=== PATIENT | female | born 1950 | race Two or more races ===

== ENCOUNTER 2017-06-22 09:25 | Emergency (ER) | payer BC ==
[~2017-06-22] VITALS: Ht 165.1 cm; Wt 72.6 kg
[2017-06-22 09:25] VITALS: BP 137/78
[2017-06-22] MEDS ORDERED: ACETAMINOPHEN ES 500 MG TABLET PO ONE (10:00)
[2017-06-22] MEDS ORDERED: TRAMADOL HCL 50 MG TABLET PO ONE (10:00)
[2017-06-22] MEDS ORDERED: TRAMADOL HCL 50 MG TABLET ONE (10:08)
[2017-06-22] MEDS ORDERED: ACETAMINOPHEN ES 500 MG TABLET ONE (10:08)
== END 2017-06-22 10:37 | disposition home or self-care (01) ==
LOC: ER 09:27
DX: M79.675 Pain in left toe(s) (principal); Z96.643 Presence of artificial hip joint, bilateral
CPT/HCPCS: 73630; 99284; A4606; Z7610

== ENCOUNTER 2017-07-06 11:00 | Outpatient (CLI) | payer BC, MEDICARE | END 2017-07-06 23:59 | disposition home or self-care (01) | LOC: WOU 11:00 | PROVIDERS: ATTEND Podiatrist Foot & Ankle Surgery | DX: M20.12 Hallux valgus (acquired), left foot (principal); M20.11 Hallux valgus (acquired), right foot; M65.872 Other synovitis and tenosynovitis, left ankle and foot; M65.871 Other synovitis and tenosynovitis, right ankle and foot; R60.0 Localized edema | CPT/HCPCS: G0463 ==

== ENCOUNTER 2017-07-07 14:07 | Outpatient (CLI) | payer BC, MEDICARE ==
[2017-07-07 14:53] LABS: APPEARANCE,URINE CLEAR (CLEAR); BILIRUBIN,URINE NEGATIVE (NEGATIVE); BLOOD, URINE NEGATIVE Ery/uL (NEGATIVE); COLOR,URINE YELLOW (YELLOW); KETONES,URINE NEGATIVE (NEGATIVE); LEUKOCYTE ESTERASE ,URINE NEGATIVE (NEGATIVE); NITRITE, URINE NEGATIVE (NEGATIVE); PH,URINE 6.5 (5.0-8.0); PROTEIN,URINE NEGATIVE (NEGATIVE); UGLUCOSE NEGATIVE (NEGATIVE); UROBILINOGEN,URINE 0.2 EU/dL (0.2)
[2017-07-07 15:04] LABS: BASOPHILS % (AUTO) 0.5 % (0.0-2.0); EOSINOPHILS # (AUTO) 0.2 /CMM (0.0-0.7); EOSINOPHILS % (AUTO) 2.5 % (0.0-6.0); HEMATOCRIT 40 % (33-45); HEMOGLOBIN 13.2 g/dL (11.5-14.8); LYMPHOCYTES # (AUTO) 2.6 /CMM (0.8-4.8); LYMPHOCYTES % (AUTO) 30.1 % (20.0-44.0); MEAN CORPUSCULAR HEMOGLOBIN 32 PG (26.0-33.0); MEAN CORPUSCULAR HGB CONC 33 g/dl (31.0-36.0); MEAN CORPUSCULAR VOLUME 95 fL (82-100); MONOCYTES # (AUTO) 0.7 /CMM (0.1-1.30); MONOCYTES % (AUTO) 7.9 % (2.0-12.0); NEUTROPHILS # (AUTO) 5.1 /CMM (1.8-8.9); PLATELET COUNT (AUTO) 152 /CMM (150-450); RDW COEFFICIENT OF VARIATION 13.6 (11.5-15.0); RED BLOOD CELL COUNT(AUTO) 4.18 MIL/uL (4.0-5.2); WHITE BLOOD COUNT (AUTO) 8.7 K/uL (4.3-11.0)
[2017-07-07 15:07] LABS: ALANINE AMINOTRANSFERASE 20 U/L (12-78); ALKALINE PHOSPHATASE 78 U/L (46-116); ASPARTATE AMINOTRANSFERASE 15 U/L (15-37); BILIRUBIN,TOTAL 0.4 mg/dL (0.2-1.0); CALCIUM, SERUM 9.1 mg/dL (8.5-10.1); CARBON DIOXIDE 26 mmol/L (21-32); CHLORIDE 104 mmol/L (98-107); GLUCOSE 110 mg/dL (74-106); SODIUM SERUM 139 mmol/L (136-145); TOTAL PROTEIN, SERUM 7.4 g/dL (6.4-8.2); UREA NITROGEN, BLOOD 19 mg/dL (7-18)
[2017-07-07 15:28] LABS: CHOLESTEROL 163 mg/dL (<200); HDL CHOLESTEROL 62 mg/dL (40-60); LDL 95 mg/dL (0-99); THYROID STIMULATING HORMONE 1.965 uIU/mL (0.358-3.74); TRIGLYCERIDES 80 mg/dL (30-150); URIC ACID 4.7 mg/dL (2.6-7.2)
[2017-07-07 15:54] LABS: C-REACTIVE PROTEIN < 0.2 mg/dL (0.0-0.9)
== END 2017-07-07 23:59 | disposition home or self-care (01) ==
LOC: LAB 14:07
PROVIDERS: ATTEND Legal Medicine
DX: Z00.01 Encounter for general adult medical examination with abnormal findings (principal); M21.071 Valgus deformity, not elsewhere classified, right ankle; M21.072 Valgus deformity, not elsewhere classified, left ankle; E78.5 Hyperlipidemia, unspecified; E55.9 Vitamin D deficiency, unspecified; R79.89 Other specified abnormal findings of blood chemistry
CPT/HCPCS: 36415; 73630-TC; 80053-TC; 80061-TC; 81000-TC; 82306; 84443-TC; 84550-TC; 85025-TC; 85652-TC; 86140-TC

== ENCOUNTER 2019-04-05 16:09 | Outpatient (CLI) | payer BC, MEDICARE ==
[2019-04-05 17:13] LABS: BASOPHILS # (AUTO) 0.1 /CMM (0.0-0.2); BASOPHILS % (AUTO) 0.9 % (0.0-2.0); EOSINOPHILS % (AUTO) 2.2 % (0.0-6.0); HEMATOCRIT 39 % (33-45); HEMOGLOBIN 13.2 g/dL (11.5-14.8); LYMPHOCYTES # (AUTO) 1.9 /CMM (0.8-4.8); LYMPHOCYTES % (AUTO) 27.2 % (20.0-44.0); MEAN CORPUSCULAR HGB CONC 34 g/dl (31.0-36.0); MEAN CORPUSCULAR VOLUME 96 fL (82-100); MONOCYTES # (AUTO) 0.7 /CMM (0.1-1.30); MONOCYTES % (AUTO) 10.5 % (2.0-12.0); NEUTROPHILS # (AUTO) 4.1 /CMM (1.8-8.9); NEUTROPHILS % (AUTO) 59.2 % (43.0-81.0); PLATELET COUNT (AUTO) 160 /CMM (150-450); WHITE BLOOD COUNT (AUTO) 6.9 K/uL (4.3-11.0)
[2019-04-05 17:14] LABS: APPEARANCE,URINE CLEAR (CLEAR); BILIRUBIN,URINE NEGATIVE (NEGATIVE); BLOOD, URINE NEGATIVE Ery/uL (NEGATIVE); COLOR,URINE YELLOW (YELLOW); KETONES,URINE NEGATIVE (NEGATIVE); LEUKOCYTE ESTERASE ,URINE NEGATIVE (NEGATIVE); NITRITE, URINE NEGATIVE (NEGATIVE); PH,URINE 6.5 (5.0-8.0); PROTEIN,URINE NEGATIVE (NEGATIVE); UGLUCOSE NEGATIVE (NEGATIVE); UROBILINOGEN,URINE 0.2 EU/dL (0.2)
[2019-04-05 17:23] LABS: ALBUMIN 3.7 g/dL (3.4-5.0); BILIRUBIN,TOTAL 0.2 mg/dL (0.2-1.0); CALCIUM, SERUM 8.8 mg/dL (8.5-10.1); CREATININE 0.9 mg/dL (0.6-1.3); POTASSIUM 4.3 mmol/L (3.5-5.1); TOTAL PROTEIN, SERUM 7.2 g/dL (6.4-8.2)
[2019-04-05 17:40] LABS: C-REACTIVE PROTEIN 1.1 mg/dL (0.0-0.9); THYROID STIMULATING HORMONE 1.94 uIU/mL (0.358-3.74); URIC ACID 3.7 mg/dL (2.6-7.2)
== END 2019-04-05 23:59 | disposition home or self-care (01) ==
LOC: LAB 16:09
PROVIDERS: ATTEND Legal Medicine
DX: Z00.00 Encounter for general adult medical examination without abnormal findings (principal); N73.8 Other specified female pelvic inflammatory diseases; Z96.643 Presence of artificial hip joint, bilateral
CPT/HCPCS: 36415; 73521; 80053-TC; 80061-TC; 81000-TC; 82306; 82728-TC; 83540-TC; 84439-TC; 84443-TC; 84550-TC; 85025-TC; 85652-TC; 86140-TC

== ENCOUNTER 2019-04-21 09:07 | Outpatient (CLI) | payer BC, MEDICARE | END 2019-04-21 23:59 | disposition home or self-care (01) | LOC: CT 09:07 | PROVIDERS: ATTEND Legal Medicine | DX: M48.061 Spinal stenosis, lumbar region without neurogenic claudication (principal); M47.817 Spondylosis without myelopathy or radiculopathy, lumbosacral region; M51.27 Other intervertebral disc displacement, lumbosacral region; M51.24 Other intervertebral disc displacement, thoracic region; N85.2 Hypertrophy of uterus; K57.30 Diverticulosis of large intestine without perforation or abscess without bleeding; Z96.643 Presence of artificial hip joint, bilateral | CPT/HCPCS: 72131-TC; 72192-TC ==

== ENCOUNTER 2019-10-02 09:47 | Emergency (ER) | payer BC, MEDICARE ==
[~2019-10-02] VITALS: Ht 165.1 cm; Wt 68.0 kg
[2019-10-02 09:50] VITALS: BP 151/84
== END 2019-10-02 10:57 | disposition home or self-care (01) ==
LOC: ER 10:02
DX: S83.8X1A Sprain of other specified parts of right knee, initial encounter (principal); Z96.643 Presence of artificial hip joint, bilateral; W23.0XXA Caught, crushed, jammed, or pinched between moving objects, initial encounter; Y93.89 Activity, other specified; Y92.89 Other specified places as the place of occurrence of the external cause; Y99.8 Other external cause status
CPT/HCPCS: 73564-TC

== ENCOUNTER 2019-10-10 09:09 | Outpatient (CLI) | payer BC | END 2019-10-10 23:59 | disposition home or self-care (01) | LOC: CT 09:09 | PROVIDERS: ATTEND Legal Medicine | DX: M17.11 Unilateral primary osteoarthritis, right knee (principal); M71.21 Synovial cyst of popliteal space [Baker], right knee; M25.461 Effusion, right knee | CPT/HCPCS: 73700-TC ==

== ENCOUNTER 2020-01-21 18:05 | Emergency (ER) | payer BC, MEDICARE ==
[~2020-01-21] VITALS: Ht 165.1 cm; Wt 68.0 kg
[2020-01-21 18:20] VITALS: BP 133/97
[2020-01-21] MEDS ORDERED: ACETAMINOPHEN ES 500 MG TABLET ONE (18:52)
[2020-01-21] MEDS ORDERED: ACETAMINOPHEN 160 MG/5 ML PO ONE (19:00)
== END 2020-01-21 19:49 | disposition home or self-care (01) ==
LOC: ER 18:11
DX: B34.9 Viral infection, unspecified (principal); R68.83 Chills (without fever); Z20.828 Contact with and (suspected) exposure to other viral communicable diseases; Z87.11 Personal history of peptic ulcer disease; Z96.643 Presence of artificial hip joint, bilateral
CPT/HCPCS: 71045; 99284; C9803; U0003

== ENCOUNTER → 2020-03-26 | Emergency (ER) | payer BC, MEDICARE ==
[~2020-03-26] VITALS: Ht 165.1 cm; Wt 70.3 kg
[2020-03-26 15:09] VITALS: BP 146/79
== END | disposition home or self-care (01) ==
LOC: ER 14:58
DX: R42 Dizziness and giddiness (principal); R51 Headache; Z96.643 Presence of artificial hip joint, bilateral

== ENCOUNTER 2020-04-15 09:41 | Outpatient (CLI) | payer BC, MEDICARE | END 2020-04-15 23:59 | disposition home or self-care (01) | LOC: CT 09:41 | PROVIDERS: ATTEND Legal Medicine | DX: S12.9XXA Fracture of neck, unspecified, initial encounter (principal); M50.13 Cervical disc disorder with radiculopathy, cervicothoracic region; M47.817 Spondylosis without myelopathy or radiculopathy, lumbosacral region; M51.26 Other intervertebral disc displacement, lumbar region; M47.23 Other spondylosis with radiculopathy, cervicothoracic region; M48.03 Spinal stenosis, cervicothoracic region; M25.78 Osteophyte, vertebrae; M41.86 Other forms of scoliosis, lumbar region; M43.16 Spondylolisthesis, lumbar region; M51.27 Other intervertebral disc displacement, lumbosacral region; M48.061 Spinal stenosis, lumbar region without neurogenic claudication; I67.82 Cerebral ischemia; G31.89 Other specified degenerative diseases of nervous system; X58.XXXA Exposure to other specified factors, initial encounter; Y93.89 Activity, other specified; Y92.89 Other specified places as the place of occurrence of the external cause; Y99.8 Other external cause status | CPT/HCPCS: 70450-TC; 72125-TC; 72131-TC ==

== ENCOUNTER 2020-04-18 09:10 | Outpatient (CLI) | payer BC, MEDICARE ==
[2020-04-18] MEDS ORDERED: IV NS 0.9% 250 ML IV ONE (09:35)
[2020-04-18] MEDS ORDERED: IOHEXOL-350 100 ML VIAL IV ONE (09:35)
== END 2020-04-18 23:59 | disposition home or self-care (01) ==
LOC: CT 09:10
PROVIDERS: ATTEND Legal Medicine
DX: I65.23 Occlusion and stenosis of bilateral carotid arteries (principal)
CPT/HCPCS: 70496; 70498; J7050; Q9967

== ENCOUNTER 2020-12-14 15:32 | Emergency (ER) | payer BC, MEDICARE ==
[~2020-12-14] VITALS: Ht 165.1 cm; Wt 68.0 kg
--- NOTE | 2020-12-14 15:32 | NUR ---
PT BIB SELF C/O BLOOD IN THE STOOL STARTED TODAY. PT IS AAOX4, NOT IN RESPIRATORY DISTRESS, V/S STABLE, KEPT RESTED AND COMFORTABLE. WILL CONTINUE TO MONITOR.
[2020-12-14] MEDS ORDERED: OMEP20CA15 PO (16:12)
[2020-12-14] MEDS ORDERED: PANTOPRAZOLE 40 MG TABLET.DR PO ONE ×2 (16:12→16:30)
--- NOTE | 2020-12-14 16:21 | NUR ---
Patient does not wish to proceed with medical care recommended by Dr. Abebe. Patient given information related to possible complications, up to and including , which could occur as a result of leaving the hospital at this time. Patient verbalizes understanding of risks involved due to leaving against medical advice. Patient has signed AMA form.
[2020-12-14 16:22] VITALS: BP 129/72
[2020-12-14] MEDS ORDERED: OMEPRAZOLE 20 MG CAPSULE.DR GT SCH (16:30)
[2020-12-14] MEDS ORDERED: PANTOPRAZOLE 40 MG/PACK PACK PO ONE (16:30)
== END 2020-12-14 16:23 | disposition left against medical advice (07) ==
LOC: ER 15:32
DX: K29.01 Acute gastritis with bleeding (principal); Z96.643 Presence of artificial hip joint, bilateral

== ENCOUNTER 2021-01-01 08:41 | Outpatient (CLI) | payer BC ==
[~2021-01-01 08:41] MED LIST: OMEP20CA15 PO
== END 2021-01-01 23:59 | disposition home or self-care (01) ==
LOC: US 08:41
PROVIDERS: ATTEND Legal Medicine
DX: K57.30 Diverticulosis of large intestine without perforation or abscess without bleeding (principal); I25.10 Atherosclerotic heart disease of native coronary artery without angina pectoris; R91.8 Other nonspecific abnormal finding of lung field; J98.11 Atelectasis; J98.4 Other disorders of lung; I70.0 Atherosclerosis of aorta; N85.2 Hypertrophy of uterus; N85.4 Malposition of uterus; M47.816 Spondylosis without myelopathy or radiculopathy, lumbar region; Z96.653 Presence of artificial knee joint, bilateral
CPT/HCPCS: 76856-TC

== ENCOUNTER 2021-06-18 12:22 | Emergency (ER) | payer BC ==
[~2021-06-18] VITALS: Ht 165.1 cm; Wt 65.8 kg
--- NOTE | 2021-06-18 12:45 | NUR ---
BODY ACHES, NEW LOSS SENSE OF TASTE X AM. 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 PT A/OX4. TOLERATING R/A WELL WITH NO SOB
--- NOTE | 2021-06-18 13:14 | NUR ---
COVID SWAB DONE AND SENT TO THE LAB
--- NOTE | 2021-06-18 13:16 | NUR ---
COVID SWAB COLLECTED AND SENT TO LAB
[2021-06-18 13:52] VITALS: BP 145/86
--- NOTE | 2021-06-18 13:52 | NUR ---
Patient discharged to home in stable condition. Written and verbal after care instructions given. Patient verbalizes understanding of instruction.
== END 2021-06-18 13:53 | disposition home or self-care (01) ==
LOC: ER 12:27
DX: R43.8 Other disturbances of smell and taste (principal); R52 Pain, unspecified; Z20.822 Contact with and (suspected) exposure to COVID-19; Z96.643 Presence of artificial hip joint, bilateral; R03.0 Elevated blood-pressure reading, without diagnosis of hypertension
CPT/HCPCS: 87426; 99283; C9803

== ENCOUNTER 2021-11-18 14:21 | Outpatient (CLI) | payer BC ==
[2021-11-18 15:07] LABS: BASOPHILS # (AUTO) 0.1 K/uL (0.0-0.2); EOSINOPHILS % (AUTO) 1.6 % (0.0-6.0); MONOCYTES # (AUTO) 0.9 K/uL (0.1-1.30)
[2021-11-18 15:14] LABS: BILIRUBIN,URINE NEGATIVE (NEGATIVE); COLOR,URINE YELLOW (YELLOW); LEUKOCYTE ESTERASE ,URINE NEGATIVE (NEGATIVE); NITRITE, URINE NEGATIVE (NEGATIVE); PROTEIN,URINE NEGATIVE (NEGATIVE); UGLUCOSE NEGATIVE (NEGATIVE); UROBILINOGEN,URINE 0.2 EU/dL (0.2)
[2021-11-18 15:21] LABS: BASOPHILS % (AUTO) 0.7 % (0.0-2.0); HEMATOCRIT 39 % (33-45); LYMPHOCYTES # (AUTO) 2.3 K/uL (0.8-4.8); LYMPHOCYTES % (AUTO) 26.3 % (20.0-44.0); MEAN CORPUSCULAR HGB CONC 34 g/dl (31.0-36.0); MEAN CORPUSCULAR VOLUME 96 fL (82-100); NEUTROPHILS # (AUTO) 5.2 K/uL (1.8-8.9); NEUTROPHILS % (AUTO) 60.4 % (43.0-81.0); PLATELET COUNT (AUTO) 117 K/uL (150-450); RED BLOOD CELL COUNT(AUTO) 4.04 MIL/uL (4.0-5.2); WHITE BLOOD COUNT (AUTO) 8.6 K/uL (4.3-11.0)
[2021-11-18 20:49] LABS: FREE T4 (FREE THYROXINE) 0.92 ng/dL (0.76-1.46); THYROID STIMULATING HORMONE 4.113 uIU/mL (0.358-3.74); URIC ACID 3.4 mg/dL (2.6-7.2)
[2021-11-18 21:03] LABS: ALBUMIN 3.9 g/dL (3.4-5.0); BILIRUBIN,TOTAL 0.5 mg/dL (0.2-1.0); CALCIUM, SERUM 8.9 mg/dL (8.5-10.1); CREATININE 0.7 mg/dL (0.6-1.3); POTASSIUM 4.4 mmol/L (3.5-5.1); TOTAL PROTEIN, SERUM 7.5 g/dL (6.4-8.2)
== END 2021-11-18 23:59 | disposition home or self-care (01) ==
LOC: LAB 14:21
PROVIDERS: ATTEND Legal Medicine
DX: Z00.00 Encounter for general adult medical examination without abnormal findings (principal); E78.00 Pure hypercholesterolemia, unspecified; E11.9 Type 2 diabetes mellitus without complications; E55.9 Vitamin D deficiency, unspecified; R53.1 Weakness; E03.9 Hypothyroidism, unspecified; D64.9 Anemia, unspecified
CPT/HCPCS: 36415; 80053-TC; 80061-TC; 82306; 82607-TC; 83540-TC; 84439-TC; 84443-TC; 84550-TC; 85025-TC; 87086-TC

== ENCOUNTER 2022-12-09 14:31 | Outpatient (CLI) | payer BC ==
[2022-12-09 15:26] LABS: BASOPHILS # (AUTO) 0.1 K/uL (0.0-0.2); EOSINOPHILS % (AUTO) 3.1 % (0.0-6.0); HEMATOCRIT 40 % (33-45); HEMOGLOBIN 13.1 g/dL (11.5-14.8); LYMPHOCYTES # (AUTO) 1.9 K/uL (0.8-4.8); MEAN CORPUSCULAR HGB CONC 33 g/dl (31.0-36.0); MEAN CORPUSCULAR VOLUME 95 fL (82-100); MONOCYTES # (AUTO) 0.6 K/uL (0.1-1.30); MONOCYTES % (AUTO) 9.5 % (2.0-12.0); NEUTROPHILS # (AUTO) 3.3 K/uL (1.8-8.9); NEUTROPHILS % (AUTO) 55.4 % (43.0-81.0); PLATELET COUNT (AUTO) 122 K/uL (150-450); RED BLOOD CELL COUNT(AUTO) 4.17 MIL/uL (4.0-5.2)
[2022-12-09 15:53] LABS: BILIRUBIN,URINE NEGATIVE (NEGATIVE); COLOR,URINE YELLOW (YELLOW); LEUKOCYTE ESTERASE ,URINE NEGATIVE (NEGATIVE); NITRITE, URINE NEGATIVE (NEGATIVE); PROTEIN,URINE NEGATIVE (NEGATIVE); UGLUCOSE NEGATIVE (NEGATIVE); UROBILINOGEN,URINE 0.2 EU/dL (0.2)
[2022-12-09 16:01] LABS: FREE T4 (FREE THYROXINE) 0.83 ng/dL (0.76-1.46); THYROID STIMULATING HORMONE 3.146 uIU/mL (0.358-3.74); URIC ACID 3.3 mg/dL (2.6-7.2)
[2022-12-09 16:15] LABS: ALBUMIN 4.1 g/dL (3.4-5.0); BILIRUBIN,TOTAL 0.3 mg/dL (0.2-1.0); CALCIUM, SERUM 9.4 mg/dL (8.5-10.1); CREATININE 0.6 mg/dL (0.6-1.3); POTASSIUM 4.1 mmol/L (3.5-5.1); TOTAL PROTEIN, SERUM 7.5 g/dL (6.4-8.2)
== END 2022-12-09 23:59 | disposition home or self-care (01) ==
LOC: LAB 14:31
PROVIDERS: ATTEND Legal Medicine
DX: Z00.00 Encounter for general adult medical examination without abnormal findings (principal); E11.9 Type 2 diabetes mellitus without complications; E55.9 Vitamin D deficiency, unspecified; R53.1 Weakness; E03.9 Hypothyroidism, unspecified; D64.9 Anemia, unspecified; E78.00 Pure hypercholesterolemia, unspecified
CPT/HCPCS: 36415; 80053-TC; 80061-TC; 82306; 82607-TC; 82728-TC; 83540-TC; 84439-TC; 84443-TC; 84481; 84550-TC; 85025-TC; 87086-TC

== ENCOUNTER 2023-07-28 05:06 | Emergency (ER) | payer BC ==
[~2023-07-28] VITALS: Ht 167.6 cm; Wt 68.0 kg
[2023-07-28] MEDS ORDERED: OSEL75CA PO (05:46)
[2023-07-28 09:29] VITALS: BP 107/66; TEMP 100; O2SAT 96
== END 2023-07-28 09:29 | disposition home or self-care (01) ==
LOC: ER 05:08
DX: J10.1 Influenza due to other identified influenza virus with other respiratory manifestations (principal); Z96.643 Presence of artificial hip joint, bilateral
CPT/HCPCS: 71045-TC

== ENCOUNTER 2024-04-20 09:19 | Inpatient (IN) | payer BC ==
[~2024-04-20] VITALS: Ht 165.1 cm; Wt 68.0 kg
[~2024-04-20 09:19] MED LIST changes: +OSEL75CA PO
[2024-04-20] MEDS: IV NS 0.9% 1,000 ML BAG IV ONE (09:30)
[2024-04-20] MEDS: PANTOPRAZOLE 40 MG VIAL IV ONE (09:30)
[2024-04-20] MEDS: ONDANSETRON HCL/PF 4 MG/2 ML VIAL IVP ONE (09:30)
[2024-04-20] MEDS ORDERED: ONDANSETRON HCL/PF 4 MG/2 ML VIAL ONE (09:34)
[2024-04-20] MEDS ORDERED: PANTOPRAZOLE 40 MG VIAL ONE (09:34)
[2024-04-20 09:48] LABS: BASOPHILS % (AUTO) 0.7 % (0.0-2.0); EOSINOPHILS # (AUTO) 0.1 K/uL (0.0-0.7); EOSINOPHILS % (AUTO) 0.9 % (0.0-6.0); HEMATOCRIT 34 % (33-45); HEMOGLOBIN 11.1 g/dL (11.5-14.8); LYMPHOCYTES # (AUTO) 2.1 K/uL (0.8-4.8); LYMPHOCYTES % (AUTO) 32.8 % (20.0-44.0); MEAN CORPUSCULAR HEMOGLOBIN 32 PG (26.0-33.0); MEAN CORPUSCULAR HGB CONC 33 g/dl (31.0-36.0); MEAN CORPUSCULAR VOLUME 95 fL (82-100); MONOCYTES # (AUTO) 0.5 K/uL (0.1-1.30); MONOCYTES % (AUTO) 7.4 % (2.0-12.0); NEUTROPHILS # (AUTO) 3.7 K/uL (1.8-8.9); NEUTROPHILS % (AUTO) 58.2 % (43.0-81.0); PLATELET COUNT (AUTO) 134 K/uL (150-450); RED BLOOD CELL COUNT(AUTO) 3.52 MIL/uL (4.0-5.2); WHITE BLOOD COUNT (AUTO) 6.3 K/uL (4.3-11.0)
[2024-04-20 09:59] LABS: CALCIUM, SERUM 9.4 mg/dL (8.5-10.1); CARBON DIOXIDE 29 mmol/L (21-32); CHLORIDE 105 mmol/L (98-107); CREATININE 0.6 mg/dL (0.6-1.3); GLUCOSE 96 mg/dL (74-106); POTASSIUM 3.8 mmol/L (3.5-5.1); SODIUM SERUM 139 mmol/L (136-145); UREA NITROGEN, BLOOD 40 mg/dL (7-18)
[2024-04-20 10:04] LABS: ALANINE AMINOTRANSFERASE 12 U/L (12-78); ALBUMIN 3.6 g/dL (3.4-5.0); ALKALINE PHOSPHATASE 75 U/L (46-116); ASPARTATE AMINOTRANSFERASE 14 U/L (15-37); BILIRUBIN,DIRECT 0.1 mg/dL (0.0-0.2); BILIRUBIN,TOTAL 0.4 mg/dL (0.2-1.0); LIPASE 37 U/L (16-77); TOTAL PROTEIN, SERUM 7.1 g/dL (6.4-8.2)
[2024-04-20 12:00] VITALS: BP 127/78; TEMP 98.1; O2SAT 99
[2024-04-20] MEDS ORDERED: Z GUARD REMEDY 4 OZ OINT TP PRN (13:30)
[2024-04-20] MEDS ORDERED: MAG HYDROX/AL HYDROX/SIMETH 30 ML UDC PO PRN (13:30)
[2024-04-20] MEDS ORDERED: MAGNESIUM HYDROXIDE 30 ML UDC PO PRN (13:30)
[2024-04-20] MEDS ORDERED: ZOLPIDEM TARTRATE 5 MG TABLET PO PRN (13:30)
[2024-04-20] MEDS ORDERED: ONDANSETRON HCL/PF 4 MG/2 ML VIAL IVP PRN (13:30)
[2024-04-20] MEDS ORDERED: ACETAMINOPHEN 325 MG TABLET PO PRN (13:30)
[2024-04-20] MEDS: IV D5/0.45 NACL 1,000 ML IV PRN (16:20)
[2024-04-20 18:00] VITALS: BP 131/76; TEMP 98.2; O2SAT 98
[2024-04-20 20:00] VITALS: BP 114/64; TEMP 97.5; O2SAT 98
[2024-04-20] MEDS: SUCRALFATE 1 G TABLET PO SCH (21:20)
[2024-04-21 04:00] VITALS: BP 113/59; TEMP 98.4; O2SAT 99
[2024-04-21 06:27] LABS: BASOPHILS % (AUTO) 0.8 % (0.0-2.0); EOSINOPHILS # (AUTO) 0.2 K/uL (0.0-0.7); EOSINOPHILS % (AUTO) 2.7 % (0.0-6.0); HEMATOCRIT 29 % (33-45); HEMOGLOBIN 9.7 g/dL (11.5-14.8); LYMPHOCYTES # (AUTO) 2.1 K/uL (0.8-4.8); LYMPHOCYTES % (AUTO) 34.3 % (20.0-44.0); MEAN CORPUSCULAR HEMOGLOBIN 32 PG (26.0-33.0); MEAN CORPUSCULAR HGB CONC 33 g/dl (31.0-36.0); MEAN CORPUSCULAR VOLUME 96 fL (82-100); MONOCYTES # (AUTO) 0.5 K/uL (0.1-1.30); MONOCYTES % (AUTO) 8.2 % (2.0-12.0); NEUTROPHILS # (AUTO) 3.3 K/uL (1.8-8.9); PLATELET COUNT (AUTO) 113 K/uL (150-450); RED BLOOD CELL COUNT(AUTO) 3.03 MIL/uL (4.0-5.2); RED CELL DISTRIBUTION WIDTH 13.9 % (11.5-15.0); WHITE BLOOD COUNT (AUTO) 6.1 K/uL (4.3-11.0)
[2024-04-21 07:09] LABS: CARBON DIOXIDE 25 mmol/L (21-32); CHLORIDE 108 mmol/L (98-107); CREATININE 0.7 mg/dL (0.6-1.3); GLUCOSE 115 mg/dL (74-106); PHOSPHORUS 3.2 mg/dL (2.5-4.9); POTASSIUM 3.9 mmol/L (3.5-5.1); SODIUM SERUM 140 mmol/L (136-145); UREA NITROGEN, BLOOD 16 mg/dL (7-18)
[2024-04-21] MEDS: PANTOPRAZOLE 40 MG VIAL IV SCH (08:29)
[2024-04-21] MEDS ORDERED: SUCR1TAB31 PO (11:35)
[2024-04-21] MEDS ORDERED: PANT40TA2 PO (11:35)
[2024-04-21 12:00] VITALS: BP 125/68; TEMP 97.3; O2SAT 100
== END 2024-04-21 12:36 | disposition home or self-care (01) | DRG 382 ==
LOC: ER 09:24 → MEDSG1 10:37
PROVIDERS: ADMIT Student in an Organized Health Care Education/Training Program; ATTEND Student in an Organized Health Care Education/Training Program
PROC: 0DB58ZX Excision of Esophagus, Via Natural or Artificial Opening Endoscopic, Diagnostic (ICD-10-PCS; principal; 2024-04-20)
PROC: 0DB68ZX Excision of Stomach, Via Natural or Artificial Opening Endoscopic, Diagnostic (ICD-10-PCS; 2024-04-20)
DX: K22.11 Ulcer of esophagus with bleeding (principal); K29.70 Gastritis, unspecified, without bleeding; K44.9 Diaphragmatic hernia without obstruction or gangrene; D25.9 Leiomyoma of uterus, unspecified; D69.6 Thrombocytopenia, unspecified; Z87.19 Personal history of other diseases of the digestive system; Z96.643 Presence of artificial hip joint, bilateral; K57.30 Diverticulosis of large intestine without perforation or abscess without bleeding; D64.9 Anemia, unspecified; K21.9 Gastro-esophageal reflux disease without esophagitis; K22.2 Esophageal obstruction
CPT/HCPCS: 36415; 71045-TC; 80048-TC; 80076-TC; 83690-TC; 83735-TC; 84100-TC; 85025-TC; 86850-TC; A4223; G0378; J2405; J2470; J2704; J3490; J7030

== ENCOUNTER 2024-09-30 14:41 | Emergency (ER) | payer BC ==
[~2024-09-30] VITALS: Ht 165.1 cm; Wt 69.4 kg
[~2024-09-30 14:41] MED LIST changes: -OMEP20CA15 PO; -OSEL75CA PO; +PANT40TA2 PO; +SUCR1TAB31 PO
[2024-09-30 15:01] VITALS: TEMP 98.1
[2024-09-30] MEDS ORDERED: ALBUTEROL FS 2.5 MG/3 ML VIAL.NEB ONE (16:05)
[2024-09-30] MEDS ORDERED: IPRATROPIUM NEB FS 0.5 MG/2.5 ML AMPUL.NEB ONE (16:05)
[2024-09-30] MEDS: IPRATROPIUM NEB FS 0.5 MG/2.5 ML AMPUL.NEB NEB ONE (16:09)
[2024-09-30] MEDS: ALBUTEROL FS 2.5 MG/3 ML VIAL.NEB NEB ONE (16:09)
[2024-09-30 16:10] VITALS: O2SAT 95
[2024-09-30] MEDS ORDERED: GUAI1TBM19 PO (16:23)
[2024-09-30] MEDS ORDERED: BENZ-13 PO (16:23)
[2024-09-30 16:24] VITALS: O2SAT 100
[2024-09-30 17:10] VITALS: BP 125/70; O2SAT 100
== END 2024-09-30 16:40 | disposition home or self-care (01) ==
LOC: ER 14:43
DX: J40 Bronchitis, not specified as acute or chronic (principal); J06.9 Acute upper respiratory infection, unspecified; B97.89 Other viral agents as the cause of diseases classified elsewhere; Z79.899 Other long term (current) drug therapy; Z96.643 Presence of artificial hip joint, bilateral; Z20.822 Contact with and (suspected) exposure to COVID-19
CPT/HCPCS: 71045-TC

== ENCOUNTER 2024-11-30 10:29 | Emergency (ER) | payer BC ==
[~2024-11-30] VITALS: Ht 165.1 cm; Wt 73.5 kg
[~2024-11-30 10:29] MED LIST changes: +BENZ-13 PO; +GUAI1TBM19 PO
[2024-11-30 10:46] VITALS: TEMP 98.1
[2024-11-30] MEDS ORDERED: AMOX/CLAVULANATE 875 MG TABLET ONE (11:17)
[2024-11-30] MEDS ORDERED: TDAP [DIPH/PERTUSSIS/TET] 0.5 ML VIAL IM ONE (11:18)
[2024-11-30] MEDS: TDAP [DIPH/PERTUSSIS/TET] 0.5 ML VIAL IM ONE (11:24)
[2024-11-30] MEDS: AMOX/CLAVULANATE 875 MG TABLET PO ONE (11:32)
[2024-11-30] MEDS ORDERED: HYDROCODONE/APAP 5/325MG TABLET ONE (11:39)
[2024-11-30] MEDS: HYDROCODONE/APAP 5/325MG TABLET PO ONE (11:45)
[2024-11-30] MEDS ORDERED: LIDOCAINE 0.5%-EPI 1:200,000 50 ML VIAL ONE (12:03)
[2024-11-30 12:59] LABS: BASOPHILS # (AUTO) 0.1 K/uL (0.0-0.2); BASOPHILS % (AUTO) 1.6 % (0.0-2.0); EOSINOPHILS # (AUTO) 0.1 K/uL (0.0-0.7); EOSINOPHILS % (AUTO) 1.2 % (0.0-6.0); HEMATOCRIT 38 % (33-45); HEMOGLOBIN 13.2 g/dL (11.5-14.8); LYMPHOCYTES # (AUTO) 1.7 K/uL (0.8-4.8); LYMPHOCYTES % (AUTO) 29.8 % (20.0-44.0); MEAN CORPUSCULAR HEMOGLOBIN 33 PG (26.0-33.0); MEAN CORPUSCULAR HGB CONC 34 g/dl (31.0-36.0); MEAN CORPUSCULAR VOLUME 95 fL (82-100); MONOCYTES # (AUTO) 0.4 K/uL (0.1-1.30); MONOCYTES % (AUTO) 7.8 % (2.0-12.0); NEUTROPHILS # (AUTO) 3.4 K/uL (1.8-8.9); NEUTROPHILS % (AUTO) 59.6 % (43.0-81.0); PLATELET COUNT (AUTO) 123 K/uL (150-450); RED BLOOD CELL COUNT(AUTO) 4.03 MIL/uL (4.0-5.2); WHITE BLOOD COUNT (AUTO) 5.7 K/uL (4.3-11.0)
[2024-11-30] MEDS ORDERED: CEFTRIAXONE 1 G VIAL ONE (13:27)
[2024-11-30] MEDS ORDERED: LIDOCAINE /MPF 1% VIAL 5 ML VIAL ONE (13:30)
[2024-11-30] MEDS: CEFTRIAXONE 1 G VIAL IM ONE (13:40)
[2024-11-30] MEDS ORDERED: AMOX-430 PO (13:48)
[2024-11-30 14:53] VITALS: BP 135/85; O2SAT 99
[2024-12-01] MEDS ORDERED: IBUP-1955 PO (18:33)
== END 2024-11-30 14:20 | disposition home or self-care (01) ==
LOC: ER 10:31
DX: S81.812A Laceration without foreign body, left lower leg, initial encounter (principal); R55 Syncope and collapse; Z79.899 Other long term (current) drug therapy; Z96.643 Presence of artificial hip joint, bilateral; Z87.19 Personal history of other diseases of the digestive system; W54.0XXA Bitten by dog, initial encounter; Y93.89 Activity, other specified; Y92.89 Other specified places as the place of occurrence of the external cause; Y99.8 Other external cause status
CPT/HCPCS: 12004; 36415; 73590; 85025; 90471; 90715; 96372; 99284; A6403; J0696; J3490

== ENCOUNTER 2024-12-01 16:06 | Emergency (ER) | payer BC ==
[~2024-12-01] VITALS: Ht 165.1 cm; Wt 73.9 kg
[~2024-12-01 16:06] MED LIST changes: +AMOX-430 PO
[2024-12-01 16:15] VITALS: BP 141/56; TEMP 97.9
[2024-12-01] MEDS ORDERED: IBUP-1955 PO (18:33)
[2024-12-01 18:39] VITALS: O2SAT 99
== END 2024-12-01 18:40 | disposition home or self-care (01) ==
LOC: ER 16:20
DX: S81.812D Laceration without foreign body, left lower leg, subsequent encounter (principal); Z48.00 Encounter for change or removal of nonsurgical wound dressing; Z79.899 Other long term (current) drug therapy; Z96.643 Presence of artificial hip joint, bilateral; Z87.19 Personal history of other diseases of the digestive system; W54.0XXD Bitten by dog, subsequent encounter

== ENCOUNTER 2024-12-06 17:32 | Emergency (ER) | payer BC ==
[~2024-12-06] VITALS: Ht 165.1 cm; Wt 68.0 kg
[~2024-12-06 17:32] MED LIST changes: +IBUP-1955 PO
[2024-12-06 19:34] VITALS: BP 126/83; TEMP 98.1; O2SAT 99
== END 2024-12-06 19:38 | disposition home or self-care (01) ==
LOC: ER 18:29
DX: M79.662 Pain in left lower leg (principal); M79.89 Other specified soft tissue disorders; Z79.899 Other long term (current) drug therapy; Z96.643 Presence of artificial hip joint, bilateral
CPT/HCPCS: 93971-TC

== ENCOUNTER 2025-02-22 13:03 | Emergency (ER) | payer BC ==
[~2025-02-22] VITALS: Ht 165.1 cm; Wt 68.0 kg
[2025-02-22 13:21] VITALS: BP 142/71; TEMP 97.8
[2025-02-22 14:45] VITALS: O2SAT 99
== END 2025-02-22 14:45 | disposition home or self-care (01) ==
LOC: ER 13:14
DX: S63.91XA Sprain of unspecified part of right wrist and hand, initial encounter (principal); S60.221A Contusion of right hand, initial encounter; Z79.899 Other long term (current) drug therapy; Z96.643 Presence of artificial hip joint, bilateral; Z87.19 Personal history of other diseases of the digestive system; V43.52XA Car driver injured in collision with other type car in traffic accident, initial encounter; Y93.89 Activity, other specified; Y92.488 Other paved roadways as the place of occurrence of the external cause; Y99.8 Other external cause status
CPT/HCPCS: 73090-TC; 73130-TC

== ENCOUNTER 2025-07-14 15:53 | Emergency (ER) | payer BC ==
[~2025-07-14] VITALS: Ht 165.1 cm; Wt 68.0 kg
[2025-07-14 17:32] LABS: PLATELET COUNT (AUTO) 126 K/uL (150-450); RED BLOOD CELL COUNT(AUTO) 4.20 MIL/uL (4.0-5.2); RED CELL DISTRIBUTION WIDTH 14.1 % (11.5-15.0); WHITE BLOOD COUNT (AUTO) 10.9 K/uL (4.3-11.0)
[2025-07-14] MEDS: IV NS 0.9% 1,000 ML BAG IV ONE (17:40)
[2025-07-14 17:47] LABS: CALCIUM, SERUM 9.0 mg/dL (8.5-10.1); CREATININE 0.6 mg/dL (0.6-1.3); SODIUM SERUM 138.0 mmol/L (136-145); UREA NITROGEN, BLOOD 15.0 mg/dL (7-18)
[2025-07-14 17:56] LABS: LACTIC ACID 1.0 mmol/L (0.4-2.0)
[2025-07-14] MEDS ORDERED: AMOX-430 PO (19:12)
[2025-07-14] MEDS ORDERED: IBUP-1490 PO (19:12)
[2025-07-14] MEDS ORDERED: ACETAMINOPHEN ES 500 MG TABLET ONE (19:14)
[2025-07-14] MEDS: ACETAMINOPHEN ES 500 MG TABLET PO ONE (19:17)
[2025-07-14 19:27] VITALS: BP 138/85; TEMP 99.7; O2SAT 95
== END 2025-07-14 19:33 | disposition home or self-care (01) ==
LOC: ER 15:56
DX: J40 Bronchitis, not specified as acute or chronic (principal); Z96.643 Presence of artificial hip joint, bilateral; Z79.899 Other long term (current) drug therapy; Z20.822 Contact with and (suspected) exposure to COVID-19
CPT/HCPCS: 99285; 96360; 71045; 87426; 93005; 87804 ×2; 84145; 85025; 80048; 87040 ×2; 83605; 36415; 87880; 87420; 87070; J7030; 86403-TC